=== PATIENT | female | born 1955 | race Hispanic/Latino ===

== ENCOUNTER 2020-10-17 13:54 | Emergency (ER) | payer MEDICARE ==
[~2020-10-17] VITALS: Ht 154.9 cm; Wt 57.2 kg
[2020-10-17 14:19] LABS: BASOPHILS # (AUTO) 0.1 (0.0-0.1); BASOPHILS % 0.8 % (0.0-1.0); EOSINOPHILS # (AUTO) 0.1 (0.0-0.4); EOSINOPHILS % 0.9 % (0.0-6.0); HEMATOCRIT 32.6 % (34.2-44.1); HEMOGLOBIN 11.1 g/dL (12.0-16.0); LYMPHOCYTES # (AUTO) 1.7 (1.0-3.2); LYMPHOCYTES % 20.2 % (18.0-39.1); MEAN CORPUSCULAR HEMOGLOBIN 31.2 pg (28-32); MEAN CORPUSCULAR VOLUME 91.6 fL (81-99); MONOCYTES # (AUTO) 0.6 (0.2-0.8); MONOCYTES % 6.7 % (4.4-11.3); NEUTROPHILS % 70.6 % (38.7-80.0); PLATELET COUNT 381 x10e3/uL (140-360); RED BLOOD COUNT 3.56 x10e6/uL (3.6-5.1); RED CELL DISTRIBUTION WIDTH 12.1 % (11.7-14.4)
[2020-10-17 14:40] LABS: ALBUMIN 3.3 g/dL (3.5-5.0); ALBUMIN/GLOBULIN RATIO 0.9 (0.8-2.0); ANION GAP 15.9 mmol/L (8-16); CREATININE, SERUM 2.43 mg/dL (0.57-1.11); POTASSIUM 4.9 mmol/L (3.5-5.1)
[2020-10-17 18:09] VITALS: BP 185/58
== END 2020-10-17 18:10 | disposition home or self-care (01) ==
LOC: ER 14:00
DX: R07.9 Chest pain, unspecified (principal); R51.9 Headache, unspecified; I10 Essential (primary) hypertension; E11.65 Type 2 diabetes mellitus with hyperglycemia; I25.10 Atherosclerotic heart disease of native coronary artery without angina pectoris; J45.909 Unspecified asthma, uncomplicated; Z20.822 Contact with and (suspected) exposure to COVID-19; Z85.528 Personal history of other malignant neoplasm of kidney; Z86.79 Personal history of other diseases of the circulatory system
CPT/HCPCS: 36415; 70450; 71045; 80053; 83880; 84484; 85025; 93005; 99284; U0002

== ENCOUNTER 2021-09-10 13:27 | Inpatient (IN) | payer MEDICARE, OTHER ==
[~2021-09-10] VITALS: Ht 160 cm; Wt 62.8 kg
[2021-09-10] MEDS ORDERED: NITROGLYCERIN 2% OINT 1 GM PKT TOP ONE (14:00)
[2021-09-10 14:15] LABS: BASOPHILS # (AUTO) 0.1 (0.0-0.1); EOSINOPHILS # (AUTO) 0.1 (0.0-0.4); EOSINOPHILS % 1.5 % (0.0-6.0); HEMATOCRIT 31.6 % (34.2-44.1); LYMPHOCYTES # (AUTO) 1.5 (1.0-3.2); LYMPHOCYTES % 19.4 % (18.0-39.1); MEAN CORPUSCULAR HEMOGLOBIN 30.1 pg (28-32); MEAN CORPUSCULAR HGB CONC 31.6 g/dL (31-35); MEAN CORPUSCULAR VOLUME 95.2 fL (81-99); MONOCYTES # (AUTO) 0.7 (0.2-0.8); MONOCYTES % 8.9 % (4.4-11.3); NEUTROPHILS # (AUTO) 5.3 (2.1-6.9); NEUTROPHILS % 68.4 % (38.7-80.0); PLATELET COUNT 266 x10e3/uL (140-360); RED BLOOD COUNT 3.32 x10e6/uL (3.6-5.1); RED CELL DISTRIBUTION WIDTH 14.3 % (11.7-14.4)
[2021-09-10 14:29] LABS: INR 0.8; PROTHROMBIN TIME 11.9 seconds (11.9-14.5)
[2021-09-10 14:30] LABS: PARTIAL THROMBOPLASTIN TIME 30.9 seconds (23.8-35.5)
[2021-09-10 14:40] LABS: ALBUMIN 3.1 g/dL (3.5-5.0); ALBUMIN/GLOBULIN RATIO 0.9 (0.8-2.0); CALCIUM 7.9 mg/dL (8.4-10.2); CREATININE, SERUM 3.19 mg/dL (0.57-1.11); MAGNESIUM 1.6 MG/DL (1.3-2.1)
[2021-09-10 14:47] LABS: CREATINE KINASE MB 6.7 ng/mL (0-5.0)
[2021-09-10] MEDS ORDERED: NITROGLYCERIN 0.4 MG SUBL SL PRN (15:00)
[2021-09-10] MEDS ORDERED: HEPARIN 25,000 UNIT 700 UNIT in DEXTROSE 5% 250ML 250 ML IV SCH (15:00)
[2021-09-10] MEDS ORDERED: Morphine 2mg Syringe 2 MG/ML SYR IV PRN (15:00)
[2021-09-10] MEDS ORDERED: ONDANSETRON HCL INJ 2MG/ML 2ML 2 MG/ML VIAL IV PRN (15:00)
[2021-09-10] MEDS ORDERED: HEPARIN SOD (PORCINE) 5,000 UNIT/ML VIAL IV ONE (15:00)
[2021-09-10] MEDS: FAMOTIDINE 20 MG/2 ML VIAL IV SCH ×2 (15:34→21:00)
[2021-09-10 16:21] VITALS: BP 135/65
[2021-09-10] MEDS ORDERED: ATORVASTATIN CA20 MG PO (17:20)
[2021-09-10] MEDS ORDERED: AMLODIPINE BESY10 MG PO (17:20)
[2021-09-10] MEDS ORDERED: COREG12.5 MG PO (17:20)
[2021-09-10] MEDS ORDERED: HYDRALAZINE HCL50 MG PO (17:20)
[2021-09-10] MEDS ORDERED: METOPROLOL TART25 MG PO (17:20)
[2021-09-10] MEDS ORDERED: SERTRALINE HCL50 MG PO (17:20)
[2021-09-10] MEDS ORDERED: GLIMEPIRIDE2 MG PO (17:20)
[2021-09-10] MEDS ORDERED: ASPIRIN81 MG PO (17:20)
[2021-09-10] MEDS ORDERED: JANUVIA25 MG PO (17:20)
[2021-09-10] MEDS ORDERED: FAMOTIDINE20 MG PO (17:20)
[2021-09-10] MEDS ORDERED: NITROGLYCERIN0.4 MG SL (17:20)
[2021-09-10] MEDS ORDERED: RANEXA1000 MG PO (17:20)
[2021-09-10] MEDS ORDERED: OMEPRAZOLE40 MG PO (17:20)
[2021-09-10] MEDS ORDERED: MONTELUKAST SOD10 MG PO (17:20)
[2021-09-10] MEDS ORDERED: FLUTICASONE P15.8 ML (17:20)
[2021-09-10 17:21] VITALS: BP 135/65
[2021-09-10 17:28] VITALS: BP 135/65
[2021-09-10] MEDS ORDERED: HEPARIN 25,000 UNIT DRIP IV ONE (17:50)
[2021-09-10 19:10] LABS: CREATINE KINASE MB 7.2 ng/mL (0-5.0)
[2021-09-10 20:00] VITALS: BP 148/55
[2021-09-10 21:00] VITALS: BP 148/55
[2021-09-10] MEDS ORDERED: ATORVASTATIN 40 MG TAB PO SCH (21:00)
[2021-09-11] VITALS (7 sets, daily range): BP systolic 110–184; BP diastolic 48–73
[2021-09-11 06:10] LABS: BASOPHILS # (AUTO) 0.1 (0.0-0.1); EOSINOPHILS # (AUTO) 0.1 (0.0-0.4); EOSINOPHILS % 2.1 % (0.0-6.0); HEMATOCRIT 27.7 % (34.2-44.1); HEMOGLOBIN 8.9 g/dL (12.0-16.0); LYMPHOCYTES # (AUTO) 1.5 (1.0-3.2); LYMPHOCYTES % 21.6 % (18.0-39.1); MEAN CORPUSCULAR HEMOGLOBIN 30.5 pg (28-32); MEAN CORPUSCULAR HGB CONC 32.1 g/dL (31-35); MEAN CORPUSCULAR VOLUME 94.9 fL (81-99); MONOCYTES # (AUTO) 0.6 (0.2-0.8); MONOCYTES % 8.2 % (4.4-11.3); NEUTROPHILS # (AUTO) 4.5 (2.1-6.9); NEUTROPHILS % 66.7 % (38.7-80.0); PLATELET COUNT 266 x10e3/uL (140-360); RED BLOOD COUNT 2.92 x10e6/uL (3.6-5.1); RED CELL DISTRIBUTION WIDTH 14.2 % (11.7-14.4)
[2021-09-11 06:51] LABS: ALANINE AMINOTRANSFERASE 7 IU/L (0-55); ALBUMIN 2.6 g/dL (3.5-5.0); ALBUMIN/GLOBULIN RATIO 0.8 (0.8-2.0); ALKALINE PHOSPHATASE 110 IU/L (40-150); ANION GAP 13.8 mmol/L (8-16); BLOOD UREA NITROGEN 45 mg/dL (7-26); BUN/CREATININE RATIO 13 (6-25); CALCIUM 7.7 mg/dL (8.4-10.2); CARBON DIOXIDE 18 mmol/L (22-29); CHLORIDE 115 mmol/L (98-107); CHOL/HDL RATIO 4.3 (3.0-3.6); CHOLESTEROL 212 MD/DL (0-199); CREATININE, SERUM 3.41 mg/dL (0.57-1.11); EST GLOMERULAR FILTRATION RATE 13 ML/MIN (60-); GLUCOSE 176 mg/dL (74-118); HDL CHOLESTEROL 49 MG/DL (40-60); POTASSIUM 4.8 mmol/L (3.5-5.1); SODIUM 142 mmol/L (136-145); TRIGLYCERIDES 408 MG/DL (0-149)
[2021-09-11 07:10] LABS: CREATINE KINASE MB 4.8 ng/mL (0-5.0)
[2021-09-11] MEDS ORDERED: ASPIRIN 81 MG ENTERIC COATED PO SCH (09:00)
[2021-09-11] MEDS: FAMOTIDINE 20 MG/2 ML VIAL IV SCH (09:48)
[2021-09-11] MEDS: RANOLAZINE 500 MG TABSR PO SCH ×2 (09:49→16:30)
[2021-09-11] MEDS: CARVEDILOL 12.5 MG TAB PO SCH ×2 (09:49→16:29)
[2021-09-11] MEDS ORDERED: ONDANSETRON HCL 4 MG ORAL DISINTEGRATING TAB PO PRN (14:30)
[2021-09-11 16:52] LABS: CREATINE KINASE MB 4.2 ng/mL (0-5.0)
[2021-09-11] MEDS ORDERED: SODIUM BICARBONATE 650 MG TAB PO SCH (17:00)
[2021-09-11] MEDS ORDERED: HYDRALAZINE HCL 20 MG/ML VIAL IV ONE (17:15)
[2021-09-11] MEDS ORDERED: CARVEDILOL 12.5 MG TAB PO ONE (17:30)
[2021-09-12] MEDS ORDERED: CARVEDILOL 12.5 MG TAB PO SCH (09:00)
== END 2021-09-11 20:30 | disposition short-term general hospital (02) | DRG 303 ==
LOC: ER 13:38 → ERHOLD 15:03 → MED/SURG2 16:05
PROVIDERS: ADMIT Internal Medicine; ATTEND Internal Medicine
DX: I25.110 Atherosclerotic heart disease of native coronary artery with unstable angina pectoris (principal); N18.4 Chronic kidney disease, stage 4 (severe); I13.10 Hypertensive heart and chronic kidney disease without heart failure, with stage 1 through stage 4 chronic kidney disease, or unspecified chronic kidney disease; E11.22 Type 2 diabetes mellitus with diabetic chronic kidney disease; Z85.528 Personal history of other malignant neoplasm of kidney; Z90.5 Acquired absence of kidney; Z87.891 Personal history of nicotine dependence; I25.2 Old myocardial infarction; Z82.49 Family history of ischemic heart disease and other diseases of the circulatory system; N25.89 Other disorders resulting from impaired renal tubular function; I16.0 Hypertensive urgency; Z20.822 Contact with and (suspected) exposure to COVID-19; Z79.82 Long term (current) use of aspirin; Z79.84 Long term (current) use of oral hypoglycemic drugs
CPT/HCPCS: 36415; 71045; 80053; 80061; 82550; 82553; 82948; 83735; 83880; 84484; 85025; 85610; 85730; 93005; 94799; 99284; J0360; J1644; U0002